=== PATIENT | male | born 1975 | race Caucasian/White ===

== ENCOUNTER 2024-02-09 19:12 | Emergency (ER) | payer BC ==
[~2024-02-09] VITALS: Ht 167.6 cm; Wt 72.6 kg
[2024-02-09 19:20] VITALS: BP_SYST 118; PULSE 78; RESP 18; TEMP 98.3; O2SAT 98
[2024-02-09] MEDS ORDERED: AUG875 PO (20:37)
[2024-02-09 20:44] VITALS: BP_SYST 118; PULSE 78; RESP 18; TEMP 98.3; O2SAT 98
== END 2024-02-09 20:43 | disposition home or self-care (01) ==
LOC: SED 19:12
DX: J02.0 Streptococcal pharyngitis (principal); Z88.2 Allergy status to sulfonamides; Z88.8 Allergy status to other drugs, medicaments and biological substances; Z79.2 Long term (current) use of antibiotics
CPT/HCPCS: 99283

== ENCOUNTER 2024-02-11 14:33 | Emergency (ER) | payer BC ==
[~2024-02-11] VITALS: Ht 167.6 cm; Wt 73.5 kg
[~2024-02-11 14:33] MED LIST: AUG875 PO
[2024-02-11 14:35] VITALS: BP_SYST 124; PULSE 73; RESP 16; TEMP 97.1; O2SAT 95
[2024-02-11] MEDS ORDERED: GENT5DRO7 EACH EYE (14:55)
[2024-02-11 14:57] VITALS: BP_SYST 124; PULSE 73; RESP 16; TEMP 97.1; O2SAT 95
== END 2024-02-11 15:00 | disposition home or self-care (01) ==
LOC: SED 14:33
DX: H10.89 Other conjunctivitis (principal); Z88.2 Allergy status to sulfonamides
CPT/HCPCS: 99283

== ENCOUNTER 2024-02-19 09:10 | Emergency (ER) | payer BC ==
[~2024-02-19] VITALS: Ht 160 cm; Wt 77.1 kg
[~2024-02-19 09:10] MED LIST changes: +GENT5DRO7 EACH EYE
[2024-02-19 09:23] VITALS: BP_SYST 132; PULSE 85; RESP 20; TEMP 98.3; O2SAT 98
[2024-02-19 11:09] LABS: INFLUENZA TYPE A Negative (NEGATIVE); INFLUENZA TYPE B NEGATIVE (NEGATIVE)
[2024-02-19] MEDS ORDERED: PSEU30TA36 PO (11:38)
[2024-02-19] MEDS ORDERED: DIPH25CA83 PO (11:38)
[2024-02-19 11:43] VITALS: BP_SYST 132; PULSE 85; RESP 20; TEMP 98.3; O2SAT 98
== END 2024-02-19 11:44 | disposition home or self-care (01) ==
LOC: SED 09:10
DX: J20.9 Acute bronchitis, unspecified (principal); Z20.822 Contact with and (suspected) exposure to COVID-19; Z88.2 Allergy status to sulfonamides; Z88.8 Allergy status to other drugs, medicaments and biological substances; Z79.899 Other long term (current) drug therapy; Z79.2 Long term (current) use of antibiotics
CPT/HCPCS: 36415; 71045; 99284